=== PATIENT | female | born 1965 | race Caucasian/White ===

== ENCOUNTER → 2016-09-03 | Outpatient (CLI) | payer OTHER | LOC: FIMAGING 08:48 | PROVIDERS: ATTEND Nurse Practitioner | DX: Z13.820 Encounter for screening for osteoporosis (principal); Z85.3 Personal history of malignant neoplasm of breast; Z79.899 Other long term (current) drug therapy ==

== ENCOUNTER 2017-03-10 05:53 | Observation (INO) | payer OTHER ==
[2017-03-10] MEDS ORDERED: LR 1,000 ML IV ONE (06:08)
--- NOTE | 2017-03-10 06:52 | PDANEPAE ---
ANE History of Present Illness 51 year old female for hysterectomy. ANE Past Medical History - Cardiovascular History Hx Hypertension: No Hx Arrhythmias: No Hx Chest Pain: Yes Hx Coronary Artery / Peripheral Vascular Disease: No Hx CHF / Valvular Disease: No Cardiovascular History Comment: Chest pain is related to a tumor in sternum from breast cancer. - Pulmonary History Hx COPD: No Hx Asthma/Reactive Airway Disease: No Hx Recent Upper Respiratory Infection: No Hx Oxygen in Use at Home: No Hx Sleep Apnea: No - Neurologic History Hx Cerebrovascular Accident: No Hx Seizures: No Hx Dementia: No - Endocrine History Hx Diabetes: No Hypothyroid: No Hyperthyroid: No Endocrine History Comment: Has thyroid nodule, but no definitive diagnosis. - Renal History Hx Renal Disorders: No Renal History Comment: PRONE TO URINARY RETENTION POST ANESTHESIA - Liver History Hx Hepatic Disorders: No - Neurological & Psychiatric Hx Hx Neurological and Psychiatric Disorders: No - Cancer History Hx Cancer: Yes Cancer History Comment: BREAST IMPLANTS. DBL MASTECTOMY - Congenital Disorder History Hx Congenital Disorders: No - GI History GERD: no Hx Gastrointestinal Disorders: No - Chronic Pain History Chronic Pain: No - Surgical History Prior Surgeries: DBL MASTECTOMY ANE Review of Systems Review of systems is: negative Review of Systems: - Exercise capacity Exercise capacity: >=4 METS METS (RN): 4 METS ANE Patient History - Allergies Allergies/Adverse Reactions: No Known Allergies Allergy (Unverified 10/05/12 11:14) - Home Medications Home medications: home medication list seen and reviewed Home Medications: Acyclovir [Zovirax 200 mg (*)] 200 mg PO BID PRN 02/18/17 [Last Taken 03/08/17] Herbals/Supplements -Info Only 1 ea PO DAILY 02/18/17 [Last Taken 03/09/17] Letrozole [Femara 2.5 mg (*)] 2.5 mg PO DAILY 02/18/17 [Last Taken 03/09/17] Leuprolide Acetate [Lupron] 0 ml SQ Q30D 02/18/17 [Last Taken 02/27/17] Ibrance HS 02/24/17 [Last Taken 02/27/17] - NPO status NPO Status: no food or drink >8 hours NPO Since - Liquids (Date): 03/09/17 NPO Since - Liquids (Time): 00:00 NPO Since - Solids (Date): 12/18/17 NPO Since - Solids (Time): 00:00 - Anes Hx Anes Hx: post operative nausea and vomiting - Smoking Hx Smoking Status: Never smoked Marijuana use: No - Alcohol Use Alcohol Use: Occasionally - Family Anes Hx Family Anes Hx: neg - N/A Family Hx Anesthesia Complications: NONE ANE Labs/Vital Signs - Vital Signs Vital Signs: reviewed preoperatively; see RN documention for details Blood Pressure: 105/68 Heart Rate: 84 Respiratory Rate: 16 O2 Sat (%): 94 Height: 160.02 cm Weight: 72.575 kg ANE Physical Exam - Airway Neck exam: FROM Mallampati Score: Class 2 Mouth exam: normal dental/mouth exam - Pulmonary Pulmonary: no respiratory distress - Cardiovascular Cardiovascular: regular rate and rhythym - ASA Status ASA Status: III ANE Anesthesia Plan Anesthesia Plan: general endotracheal anesthesia Total IV Anesthesia: No
[2017-03-10] MEDS ORDERED: MIDAZOLAM 2 MG/2 ML VIAL IVP ONE (06:57)
[2017-03-10] MEDS ORDERED: SCOPOLAMINE HYDROBROMIDE 1 MG/3 DAYS PATCH TD SCH (07:00)
[2017-03-10] MEDS ORDERED: BUPIVACAINE 0.25% 30 ML SDV ONE (07:13)
[2017-03-10] MEDS ORDERED: morphINE PF 5 MG/10 ML INJ ONE (07:17)
[2017-03-10] MEDS ORDERED: PROPOFOL 200 MG/20 ML VIAL ONE (07:22)
[2017-03-10] MEDS ORDERED: PROPOFOL/EMULSION 500 MG/50 ML BOTTLE IV ONE ×2 (07:22→08:11)
[2017-03-10] MEDS ORDERED: fentaNYL 100 MCG/2 ML INJ ONE ×2 (07:22→09:45)
[2017-03-10] MEDS ORDERED: ceFAZolin 2 GM/SWFI 2 GM/20 ML SYR IVP ONE (07:30)
--- NOTE | 2017-03-10 07:51 | PDHPUP ---
History & Physical Update H&P update statement: This history and physical update is based on an assessment of the patient which was completed after admission or registration (within 24 hours), but prior to the surgery/procedure.
[2017-03-10] MEDS ORDERED: SCOPOLAMINE HYDROBROMIDE 1 MG/3 DAYS PATCH TD ONE (08:04)
[2017-03-10] MEDS ORDERED: DEXAMETHASONE 4 MG/ML VIAL ONE (08:11)
[2017-03-10] MEDS ORDERED: ONDANSETRON 4 MG/2 ML VIAL ONE (08:11)
[2017-03-10] MEDS ORDERED: ROCURONIUM 50 MG/5 ML VIAL ONE (08:11)
[2017-03-10] MEDS ORDERED: LIDOCAINE 2% 5 ML SDV ONE (08:11)
[2017-03-10] MEDS ORDERED: NALOXONE HCL 0.4 MG/ML INJ IVP PRN ×3 (08:21→10:00)
[2017-03-10] MEDS ORDERED: PHENYLEPHRINE HCL 100 MCG/ML SYR IVP PRN (08:26)
[2017-03-10] MEDS ORDERED: ACETAMINOPHEN 500 MG TAB PO PRN (08:26)
[2017-03-10] MEDS ORDERED: fentaNYL 100 MCG/2 ML INJ IVP PRN ×2 (08:26→09:43)
[2017-03-10] MEDS ORDERED: ONDANSETRON 4 MG/2 ML VIAL IVP PRN ×3 (08:26→10:00)
[2017-03-10] MEDS ORDERED: HYDROmorphONE/DILAUDID 1 MG/ML INJ IVP PRN ×2 (08:26→09:43)
[2017-03-10] MEDS ORDERED: LR 500 ML IV PRN ×2 (08:26→09:43)
[2017-03-10] MEDS: VASOPRESSIN 20 UNIT/ML VIAL ONE ×2 (08:37→09:48)
[2017-03-10] MEDS ORDERED: SUGAMMADEX SODIUM 500 MG/5 ML VIAL IVP ONE (08:43)
[2017-03-10] MEDS ORDERED: KETOROLAC 30 MG/1 ML SDV ONE (09:18)
[2017-03-10] MEDS ORDERED: HYDROCODONE/APAP 5/325 TAB PO PRN (09:58)
[2017-03-10] MEDS ORDERED: LR 1,000 ML IV SCH (10:00)
[2017-03-10] MEDS ORDERED: METOCLOPRAMIDE 10 MG/2 ML VIAL IVP PRN (10:00)
[2017-03-10] MEDS ORDERED: RN MESSAGE:REGARDING ANALGESIC ORDERING DR MISC SCH (10:00)
[2017-03-10] MEDS ORDERED: IBUPROFEN 600 MG TAB PO PRN (11:51)
[2017-03-10] MEDS ORDERED: IBUPROFEN 600 MG TAB PO SCH (14:00)
--- NOTE | 2017-03-10 14:43 | POSTANESTH ---
Post Anesthetic Evaluation Cardiovascular Status: Normal, Stable, Similar to Pre-Op Cond Respiratory Status: Normal, Stable, Similar to Pre-op Cond. Level of Consciousness/Mental Status: Can Participate in Eval, Alert and Oriented Pain Control: Adequate, Prn Tx Ordered (Moderate pain on arrival to PACU, did need treatment with Fentanyl PRN. Believe Duramorph effect delayed as within a couple hours, patient reporting no pain. Seen and evaluated in patient's room immediately preceding documentation of this note.) Nausea/Vomiting Control: Adequate, Prn Tx Ordered Complications Possibly Related to Anesthesia: None Noted
[2017-03-10] MEDS: RN MESSAGE:DATE/TIME OF ADMIN MISC SCH ×2 (14:52→23:15)
--- NOTE | 2017-03-10 22:08 | GOP ---
[f rep st] OPERATIVE REPORT DATE OF OPERATION: 03/10/2017 SURGEON: Apolonia Kiran MD FACILITIES LOCATOR: ROSE MARIE Bloom ANESTHESIA: Spinal, morphine for postoperative pain control and general with LMA. ANESTHESIOLOGIST: This is Dr. Angel Medel. PREOPERATIVE DIAGNOSIS: 1. Recurrent breast cancer. 2. Desires prophylactic and therapeutic bilateral salpingo-oophorectomy. Also interested in vaginal hysterectomy. POSTOPERATIVE DIAGNOSIS: 1. Recurrent breast cancer. 2. Desires prophylactic and therapeutic bilateral salpingo-oophorectomy. Also interested in vaginal hysterectomy. PROCEDURE PERFORMED: Total vaginal hysterectomy, bilateral salpingo-oophorectomy. FINDINGS: Normal-appearing cervix, uterus, fallopian tubes, and ovaries. ESTIMATED BLOOD LOSS: Minimal. INDICATIONS: The patient is a 51-year-old referred by Dr. Adenike Zimmerman to discuss ovarian removal, as s he initially was diagnosed with breast cancer in 2012 and then developed recurrence in 2016. She is on suppressive Lupron and desires removal of ovaries and also uterus, cervix, and fallopian tubes for definitive therapy. DESCRIPTION OF PROCEDURE: With informed consent signed the patient was taken to the operating room a nd placed under spinal then general anesthesia. A speculum was placed in the vagina and tenaculum pl aced on the anterior lip of the cervix. A Ma catheter was placed. A posterior colpotomy was perf ormed using-Wilson scissors, and the baseball stitch used to incorporate the peritoneum to the underlyi ng posterior vaginal tissue. Next, the uterosacral ligament was clamped, cut on the left, and Kelvin suture ligated. The same was done on the right. The cardinal ligaments on each side were clamped, cut, and Kelvin suture ligated. The uterine vessels on each side were clamped, cut, and suture ligat ed, and then the anterior peritoneum was opened sharply and then the anterior and posterior broad lig aments clamped together, cut, and suture ligated. Next, the uterosacral ligament on the right was cl amped, cut, and tagged and then the left infundibulopelvic ligament clamped, cut, and tagged. The ri ght ovary and fallopian tube were then clamped and resected, and then the pedicle was free tied and s uture ligated. The same was done on the left. Visualization of the pedicles showed hemostasis. The inspection of all the pedicles showed hemostasis and then a Clayton culdoplasty performed grasping th e 6 o'clock part of the vaginal cuff, incorporating the left uterosacral ligament, parts of the poste rior peritoneum and then the right uterosacral ligament, then coming out the entry point of the vagin al tissue, then this was tied down obliterating the cul-de-sac, and then the vaginal cuff was closed with [id number] sutures. The patient was placed in the supine position, awakened in the operati ng room, and taken to the recovery room in stable condition. Tolerated the procedure well. COMPLICATIONS: None. /[id number]/MODL
[2017-03-10] MEDS: DOCUSATE SODIUM 100 MG CAP PO SCH (23:01)
[2017-03-11 08:00] VITALS: BP 85/54; PULSE 68; RESP 17; TEMP 97.5; O2SAT 94
[2017-03-11] MEDS: DOCUSATE SODIUM 100 MG CAP PO SCH (09:38)
[2017-03-11] MEDS ORDERED: POLYETHYLENE GLYCOL 3350 17 GM PKT PO ONE ×2 (10:52→11:00)
[2017-03-11 11:44] LABS: % IMMATURE GRANULYOCYTES 0.4 % (0.0-1.1); ABSOLUTE IMMATURE GRANULOCYTES 0.02 10^3/uL (0.00-0.10); ADD DIFF? NO; ADD MORPH? NO; ADD SCAN? NO; ATYPICAL LYMPHOCYTE FLAG 0 (0-99); FRAGMENT RBC FLAG 0 (0-99); HEMATOCRIT 35.4 % (38.0-47.0); HEMOGLOBIN 11.8 g/dL (12.6-16.3); LEFT SHIFT FLG 0 (0-99); LIPEMIA HEMOLYSIS FLAG 80 (0-99); MEAN CELL HEMOGLOBIN 34.4 pg (27.9-34.1); MEAN CELL HEMOGLOBIN CONCENTR. 33.3 g/dL (32.4-36.7); MEAN CELL VOLUME 103.2 fL (81.5-99.8); MEAN PLATELET VOLUME 10.4 fL (8.7-11.7); PLATELET CLUMPS FLAG 10 (0-99); PLATELET COUNT 195 10^3/uL (150-400); RED BLOOD CELL COUNT 3.43 10^6/uL (4.18-5.33); RED CELL DISTRIBUTION WIDTH 12.5 % (11.5-15.2)
--- NOTE | 2017-03-11 12:23 | SOAPPROG ---
SOAP Progress Note Assessment/Plan: Assessment:POD #1 s/p TVH/BSO doing well Hct is low at 33 , otherwise nl bowel function, , ambulating well Plan: recheck CBC , if stable ok for d/c home , no pain meds needed and to f/ u in 1 week , d/c instructions given Subjective: no c/o no bleeding , no nausea or vomitting Objective: Vital Signs Temp Pulse Resp BP Pulse Ox 36.4 C 68 17 85/54 L 94 03/11/17 07:55 03/11/17 07:55 03/11/17 07:55 03/11/17 07:55 03/11/17 07:55 Laboratory Results 03/11/17 11:25 03/10/17 03/11/17 03/12/17 05:59 05:59 05:59 Intake Total 600 Output Total 2350 Balance -1750 abd soft nontender bowel sounds faint, lungs CTA and perineum min bleeding - Pending Discharge Pending Discharge Within 24 Hours: Yes Pending Discharge Date: 03/12/17 Pending Discharge Time: 11:00 ICD10 Worksheet Patient Problems: Problems Problem Status Onset Breast cancer Acute Postop check Acute - ICD10 Problem Qualifiers (1) Postop check (2) Breast cancer
[2017-03-13] MEDS ORDERED: PATCH REMOVAL 1 EA PATCH TD SCH (06:58)
== END 2017-03-11 13:00 | disposition home or self-care (01) ==
LOC: F3E 05:53 → FOB 11:11
PROVIDERS: ADMIT Obstetrics & Gynecology Gynecology; ATTEND Obstetrics & Gynecology Gynecology
DX: Z40.02 Encounter for prophylactic removal of ovary(s) (principal); D25.9 Leiomyoma of uterus, unspecified; C79.51 Secondary malignant neoplasm of bone; Z90.13 Acquired absence of bilateral breasts and nipples; Z85.3 Personal history of malignant neoplasm of breast
CPT/HCPCS: 58262; G0378; J0690; J1100; J1885; J2250; J2274; J2370; J2405; J2704; J3010